=== PATIENT | female | born 1945 | race Caucasian/White ===

== ENCOUNTER 2020-04-11 09:20 | Outpatient (CLI) | payer MEDICARE, MEDICAID ==
--- NOTE | 2020-04-11 10:08 | RAD ---
EXAM: 3 views of the left ankle HISTORY: Idiopathic aseptic necrosis of the bone COMPARISON: None FINDINGS: 3 views of the left ankle shows no evidence of acute fracture or dislocation. There is a sl ightly misshapen talus. Mild degenerative changes are seen in the tibiotalar joint and midfoot. Mild medial soft tissue swelling is seen. Phleboliths are present. IMPRESSION: Degenerative changes of the foot and ankle as above
--- NOTE | 2020-04-11 10:10 | RAD ---
EXAM: 3 views of the left foot HISTORY: Idiopathic aseptic necrosis of bone COMPARISON: None FINDINGS: 3 views of the left foot shows no evidence of acute fracture or dislocation. The talus is s lightly misshapen. 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 Mild degenerative changes are seen in the midfoot. Mild diffuse soft tissue swelling is seen. There is mild first metatarsal head hyperplas ia. IMPRESSION: Degenerative changes of the left foot as above.
--- NOTE | 2020-04-11 10:17 | RAD ---
Portable frontal chest radiograph: 04/11/2020 COMPARISON: 06/06/2015 HISTORY: Hypertension FINDINGS: The heart and mediastinal contours demonstrate tortuosity of the descending thoracic aorta. There is mild atherosclerotic calcification of the aortic arch. There is mild increased linear interstitial density. There is no pneumothorax or pleural fluid and no focal consolidation or alveolar edema. Lobulated contour of the right hemidiaphragm suggests eventration. There has been no significant inte rval change when compared to the 06/06/2015 examination. IMPRESSION: No acute findings.
--- NOTE | 2020-04-11 11:48 | BD ---
BONE DENSITOMETRY USING DEXA: HISTORY: Postmenopausal screening for osteoporosis. FINDINGS: Lumbar Spine: BMD (g/cm2) L1 1.188 T-Score: 1.8 Z-Score: 4.0 L2 1.177 T-Score: 1.4 Z-Score: 3.8 L3 1.344 T-Score: 2.4 Z-Score: 4.9 L4 1.198 T-Score: 1.2 Z-Score: 3.9 L1-L4 1.229 T-Score: 1.7 Z-Score: 4.1 Femoral Neck: 0.861 T-Score: 0.1 Z-Score: 2.2 Total Femur: 0.952 T-Score: 0.1 Z-Score: 1.9 Impression: Normal bone mineral density. POS: AH
== END 2020-04-11 09:21 | disposition home or self-care (01) ==
LOC: BICMAMMO 09:20
PROVIDERS: ATTEND Family Medicine
DX: Z13.820 Encounter for screening for osteoporosis (principal); M87.00 Idiopathic aseptic necrosis of unspecified bone; I10 Essential (primary) hypertension; M19.072 Primary osteoarthritis, left ankle and foot; Z79.83 Long term (current) use of bisphosphonates
CPT/HCPCS: 71045; 77080